=== PATIENT | female | born 1980 | race Caucasian/White ===

== ENCOUNTER 2022-07-22 11:08 | Outpatient (CLI) | payer BC, SELFPAY ==
[2022-07-22 17:43] LABS: SARS PCR* Negative SARS-CoV-2 (Negative)
== END 2022-07-22 11:09 | disposition home or self-care (01) ==
PROVIDERS: Visit Provider Obstetrics & Gynecology
DX: Z11.52 Encounter for screening for COVID-19 (principal)
CPT/HCPCS: 87635

== ENCOUNTER 2022-07-23 07:34 | Day surgery (SDC) | payer BC, SELFPAY ==
[2022-07-23] VITALS (7 sets, daily range): BP systolic 102–134; BP diastolic 59–84; PULSE 62–92; RESP 14–16; TEMP 36.2–36.9; O2SAT 95–98; BMI 32.2
[2022-07-23] MEDS: LACTATED RINGERS 1000 ML 1,000 ML 100 ML IV ×2 (08:30→09:56)
--- NOTE | 2022-07-23 08:42 | W.PM.GYNPROC ---
Procedure Note Time Seen by Provider: :44 Date Seen: 07/23/22 Procedure Details: PREOPERATIVE DIAGNOSIS: 1. Menorrhagia POSTOPERATIVE DIAGNOSIS: 1. Menorrhagia NAME OF PROCEDURE: 1. Hysteroscopy. 2. D and C 3. Ella endometrial ablation. SURGEON: Bib ANESTHESIA: Monitored anesthesia care and paracervical block COMPLICATIONS: None. ESTIMATED BLOOD LOSS: Less than 10 mL. FINDINGS: Normal-appearing uterine cavity and tubal ostia bilaterally.. PATHOLOGY SPECIMENS: Endometrial curettings. PROCEDURE: After obtaining informed consent, the patient was taken to the operating room where she received monitored anesthesia care. She was prepared and draped in the normal sterile fashion, in the dorsal lithotomy position. An open-sided bivalve speculum was introduced into the vagina and the cervix visualized. The anterior lip of the cervix was grasped with a single-tooth tenaculum for traction. A paracervical block was then administered using a total of 20 mL of a 50/50 mixture of 0.25% Marcaine and 1% lidocaine plain. The uterus was gently sounded. Sound length was 9 cm. The cervix length was determined to be 4 cm using Hegar dilators, yielding a uterine cavity length of 5 cm. The cervix was gently dilated to a #6 Hegar dilator. A hysteroscope was then advanced under direct visualization through the cervix into the uterine cavity. Sterile normal saline was used as distending medium. The uterine cavity was carefully inspected with the findings noted above. The hysteroscope was then removed. The endometrial lining was then sharply curetted. The Ella device was then set to a cavity length of 5 cm, inserted through the cervical os into the uterine cavity to the level of the fundus, and deployed. The device was sealed against the cervix. The safety checks were then passed x2 and the 2-minute treatment cycle initiated. Following completion of the treatment cycle, the Ella device was removed. The hysteroscope was advanced again into the uterine cavity and the uterine cavity inspected. A good ablation was noted from the internal os to fundus and to the cornua bilaterally. Pictures were taken for documentation purposes. The hysteroscope was removed. The tenaculum was removed. There was little bleeding from the tenaculum site, which was controlled with direct pressure sponge stick. All instruments were then removed. The patient tolerated the procedure well. At this point, the case was turned over to Dr. Guo for placement of a trans obturator suburethral sling. Please see her note for details of her procedure.
--- NOTE | 2022-07-23 09:04 | P.PCN_ITS ---
Procedure Note Time Seen by Provider: : Date Seen: 07/23/22 Provider Contact Time: : Date of procedure: 07/23/22 Will [facility] bill your pro fee for this procedure?: Yes Procedure Description: Preoperative diagnosis: 42-year-old 2 para 2 with stress urinary incontinence. and menorrhagia Postoperative diagnosis: Same Procedures: Transobturator, sub-uretrhal sling placement. Using Klever sl ing. Anesthesia: MAC and local. Surgeon: Mag Guo MD for the sling placement, Dr. Laya Mccartney for hysteroscopy, D&C and endometrial ablation Cardiovascular Rn :N/A Estimated blood loss: 50ml IV Fluid: 1000 ml Drains: Ragsdale catheter, clamped to recovery Specimen: None for my portion of the procedure, endometrial curettings from the D&C Complications: None Findings: On exam under anesthesia the external genitalia, urethral meatus, Touchet's and Bartholin's glands all appear normal. On diagnostic cystoscopy after placement of the sling there was no evidence of urethral or bladder injury. Procedure: The patient was taken to the operating room where conscious sedation was found to be adequate. The hysteroscopy, dilation and curettage and endometrial ablation was performed. Please see Dr. Mccartney note for complete details. The patient was placed in the high Gold's position. Ragsdale catheter was placed. A skin marker was used to lupe on the area where the trocars were going to be placed. This is at the level of the clitoris and bilateral groin folds. 0.1% lidocaine with epinephrine was used for local for this procedure. 10 mL was injected in the incisions at each of the groin folds. Total of 30 ml used. A weighted speculum was placed in the vagina. 10 mL of the lidocaine with epinephrine was injected in the anterior aspect of the vaginal canal over the mid urethral area. Punch incisions were made in the groin fold rothman. A 2 cm vertical incision was made in the vaginal mucosa. The mucosa was grasped with 2 Allis clamps 1 on each side of the incision. The vaginal mucosa was then undermined using Metzenbaum scissors toward the inferior aspect of the patient's pubic bone bilaterally. The left [] trocar was placed without difficulty and the [] sling attached to it. The right trocar was then placed without difficulty and the right side of the sling attached to this trocar. Both trocars were used to pull the sling through the incision the groin incisions. A #9 Hegar cervical dilator was placed between the sling and the urethral mucosa to prevent the sling from being tightened too much. The Ragsdale catheter was removed briefly, a diagnostic cystoscopy was performed using saline as the insufflation medium. The bladder and urethra shortness of no evidence of injury from sling placement. The cystoscope was removed and the Ragsdale catheter replaced after Betadine was applied to the urethral meatus to drain cystoscopy fluid then the catheter was removed. The trocars were removed by cutting the sling just above the groin incisions. The overlying plastic removed and the remaining sling was then trimmed so the edge was below the skin. The groin skin incisions were repaired using LiquiBand skin adhesive. The vaginal incision was repaired using 2-0 Vicryl in a running locked manner. Excellent hemostasis was noted. The patient tolerated these procedures well. Sponge, lap and instrument counts were correct x2 at the end of the procedure and the patient was taken to the recovery area in stable condition. The patient received 2gm IV Ancef prior to starting the procedure. She received 30 mg Toradol IV prior to being awakened from anesthesia. Surgeon: Mag Guo MD
[2022-07-23] MEDS: CEFAZOLIN 2 GM in 0.9 % SODIUM CHLORIDE Mini-bag 100 ML IVPB (09:05)
--- NOTE | 2022-07-23 09:43 | SUR.OPER ---
deficit 115ml
[2022-07-23] MEDS: KETOROLAC 30 MG/ML inj IVP (09:55)
--- NOTE | 2022-07-23 10:26 | W.ANESCHARGE ---
Anesthesia Charges Start Date/Time Anesthesia Start Date: 07/23/22 Anesthesia Start Time: 09:01 Stop Date/Time Anesthesia Stop Date: 07/23/22 Anesthesia Stop Time: 10:14 Summary Emergency: No
--- NOTE | 2022-07-23 10:42 | W.ANESCHARGE ---
Anesthesia Charges Start Date/Time Anesthesia Start Date: 07/23/22 Anesthesia Start Time: 09:01 Stop Date/Time Anesthesia Stop Date: 07/23/22 Anesthesia Stop Time: 10:14 Summary Emergency: No
--- NOTE | 2022-07-23 11:14 | SUR.PHASEII ---
300 CC NORMAL SALINE INSTILLED INTO BLADDER AT 1108 PER SURGEON ORDER.
--- NOTE | 2022-07-23 11:48 | SUR.PHASEII ---
600CC URINARY OUTPUT @ 1148 FROM NORMAL SALINE INSTILLATION.
--- NOTE | 2022-07-23 11:50 | SUR.PHASEII ---
CATHETER D/C'D AFTER INSTILLATION OF NORMAL SALINE INTO BLADDER.
[2022-07-23] MEDS: OXYCODONE 5 MG TABLET PO (11:57)
== END 2022-07-23 12:30 | disposition home or self-care (01) ==
PROVIDERS: Obstetrics & Gynecology; PCP Family Medicine; Visit Provider Obstetrics & Gynecology
PROC: (CPT 57288; principal; 2022-07-23 09:00)
PROC: 0UF98ZZ Fragmentation in Uterus, Via Natural or Artificial Opening Endoscopic (ICD-10-PCS; CPT 58563; 2022-07-23 09:00)
DX: N92.0 Excessive and frequent menstruation with regular cycle (principal); N39.3 Stress incontinence (female) (male)
CPT/HCPCS: 58563; 57288; 81025; 88305; 952; A4344; A9270; C1771; J0690; J1100; J1885; J2250; J2405; J2704; J3010; J7120

== ENCOUNTER 2022-08-06 11:26 | Outpatient (CLI) | payer BC, SELFPAY | END 2022-08-06 11:27 | disposition home or self-care (01) | LOC: LONREF 11:27 | PROVIDERS: PCP Family Medicine; Visit Provider Obstetrics & Gynecology | DX: N39.3 Stress incontinence (female) (male) (principal) | CPT/HCPCS: 87086 ==

== ENCOUNTER 2023-07-30 15:01 | Outpatient (CLI) | payer OTHER, SELFPAY | END 2023-07-30 15:02 | disposition home or self-care (01) | PROVIDERS: PCP Family Medicine; Visit Provider Family Medicine | DX: I10 Essential (primary) hypertension (principal); E03.9 Hypothyroidism, unspecified; E66.9 Obesity, unspecified | CPT/HCPCS: 80048; 84439; 84443 ==

== ENCOUNTER 2023-10-28 13:02 | Outpatient (CLI) | payer OTHER, SELFPAY ==
--- NOTE | 2023-10-28 13:00 | CRLHL7_ITS ---
For Patients: As a result of the Century Cures Act, medical imaging exams and procedure reports are released immediately into your electronic medical record. You may view this report before your referring provider. If you have questions, please contact your health care provider. BILATERAL SCREENING MAMMOGRAM WITH COMPUTER-AIDED DETECTION AND TOMOSYNTHESIS TECHNIQUE: CC, MLO and Implant displaced views were obtained. These mammographic images have been obtained using full-field digital technique. These mammographic images were interpreted with the benefit of computer-aided detection. Breast Tomosynthesis was used in this interpretation. COMPARISON FILM: 05/23/21. FINDINGS: There are scattered areas of fibroglandular density IMPRESSION: There is no radiographic evidence for malignancy. ASSESSMENT: BI-RADS Category 2: Benign RECOMMENDATION: Routine screening mammogram in 1 year. A lay language report of this examination will be provided to the patient. Dyan Carrasco M.D. Diagnostic/Breast Radiologist [email or web address] KIM/Dictated by: Dyan Carrasco MD @ 10/30/2023 9:12:00 AM (Electronically Signed)
== END 2023-10-28 13:03 | disposition home or self-care (01) ==
PROVIDERS: PCP Family Medicine; Visit Provider Family Medicine
DX: Z12.31 Encounter for screening mammogram for malignant neoplasm of breast (principal)
CPT/HCPCS: 77063; 77067

== ENCOUNTER 2024-08-24 15:26 | Outpatient (CLI) | payer OTHER, SELFPAY | END 2024-08-24 15:27 | disposition home or self-care (01) | PROVIDERS: PCP Family Medicine; Visit Provider Family Medicine | DX: I10 Essential (primary) hypertension (principal); E03.9 Hypothyroidism, unspecified; F41.9 Anxiety disorder, unspecified | CPT/HCPCS: 80048; 84439 ==

== ENCOUNTER 2025-08-01 15:49 | Outpatient (CLI) | payer OTHER, SELFPAY | END 2025-08-01 15:50 | disposition home or self-care (01) | PROVIDERS: PCP Family Medicine; Visit Provider Family Medicine | DX: Z13.6 Encounter for screening for cardiovascular disorders (principal); E03.9 Hypothyroidism, unspecified; I10 Essential (primary) hypertension; Z13.21 Encounter for screening for nutritional disorder | CPT/HCPCS: 80048; 80061; 82607; 84443 ==